=== PATIENT | male | born 1985 | race Caucasian/White ===

== ENCOUNTER 2018-08-24 12:09 | Emergency (ER) | payer OTHER ==
[~2018-08-24] VITALS: Ht 177.8 cm; Wt 72.6 kg
[~2018-08-24 12:09] MED LIST: BENADRYL25 MG PO; FAMOTIDINE PO; IBUPROFEN 800800 M1 PO; MEDROL DOSPAK21 TA1 PO; MEDROL DOSPAK21 TAB PO; NOHOMEMEDICATIONS; PREDNISONE 10 M10 M1 PO; VALTREX1000 MG PO
[2018-08-24 13:15] VITALS: BP 145/80
== END 2018-08-24 13:22 | disposition home or self-care (01) ==
LOC: ER 12:09
DX: S61.210A Laceration without foreign body of right index finger without damage to nail, initial encounter (principal); F17.210 Nicotine dependence, cigarettes, uncomplicated; Z88.0 Allergy status to penicillin; W25.XXXA Contact with sharp glass, initial encounter; Y93.89 Activity, other specified; Y92.89 Other specified places as the place of occurrence of the external cause; Y99.8 Other external cause status